=== PATIENT | male | born 1955 | race Hispanic/Latino ===

== ENCOUNTER 2025-02-09 10:24 | Emergency (ER) | payer BC, MEDICARE ==
[~2025-02-09] VITALS: Ht 172.7 cm; Wt 93.0 kg
[2025-02-09 10:26] VITALS: BP 120/90; PULSE 92; RESP 16; TEMP 99.1
[2025-02-09 10:44] LABS: GLUCOSE, URINE (UA) NEGATIVE (NEGATIVE); LEUKOCYTE ESTERASE ,URINE 500 Leu/uL (NEGATIVE); NITRATE,URINE NEGATIVE (NEGATIVE); OCCULT BLOOD,URINE LARGE (NEGATIVE)
[2025-02-09 10:45] LABS: ADD UA MICROSCOPIC YES; APPEARANCE,URINE CLOUDY (CLEAR)
--- NOTE | 2025-02-09 11:10 | ERN ---
ED Note History of Present Illness Stated Complaint: HEMATURIA Chief Complaint: Blood in Urine: Time Seen by MD: 10:26 Time Seen by Midlevel: 10:27 Dictation: 69-year-old male who presents to the emergency department due to report of having burning and painful urination along with a trace of blood that was noted this morning. Currently, he denies having any fever, chills, nausea, vomiting, flank pain, abdominal pain or scrotal/testicular pain. Patient states that he is not having any penile discharge. He states that he has had some urinary tract infections in the past of the and believes that this is related to that. However, he states that he does have a history of kidney stones but states that this does not feel that the most that he has had in the past. Allergies: Coded Allergies: No Known Drug Allergies (Unverified Allergy, Unknown, 02/09/25) Uncoded Allergies: POLLENS, GRASS, TREE LEAVES (Allergy, Unknown, COUGH, 04/28/15) Emergency Care SOFTWARE APPLICATIONS ARCHITECT: None Home Meds No Active Prescriptions or Reported Meds Past Medical History Past Medical History: Other Additional Past Medical Hx: PROSTATE PROBLEMS Surgical History: Other Surgical History Other: RT SHOULDER SX PSYCH History: no pertinent psych hx RN Note Reviewed/Agreed w/PFSH: Yes Review of System Dictation : Dysuria, hematuria Initial Vital Sign VS Vital Signs Date Time Temp Pulse Resp B/P (MAP) Pulse Ox O2 Delivery O2 Flow Rate FiO2 02/09/25 10:26 99.1 92 16 120/90 97 Room Air 0 Physical Exam Dictation General: awake, alert, NAD Head/Face: Normocephalic, atraumatic Eyes: PERRL, EOMI ENT: Oral mucosa moist Neck: Trachea midline, supple Cardiovascular: RRR, no edema Respiratory: Symmetrical, non-labored Abdomen: Soft, non-tender, non-distended, no guarding. Skin: Warm, dry, good turgor, no rash MS/Extremity: Pulses equal, no cyanosis, neurovascular intact, FROM Neuro: COAx4, GCS 15, steady gait, Psych: Normal behavior, mood, and affect normal Results (Laboratory/Radiology) Laboratory/Radiology Laboratory Tests Test 02/09/25 10:35 Urine Color RED (YELLOW) Urine Appearance CLOUDY (CLEAR) H Urine pH 6.0 (5.0-8.0) Urine Specific [place] 1.016 (1.001-1.031) Urine Protein 70 mg/dL (NEGATIVE) H Urine Glucose (UA) NEGATIVE mg/dL (NEGATIVE) Urine Ketones NEGATIVE mg/dL (NEGATIVE) Urine Occult Blood LARGE (NEGATIVE) H Urine Nitrate NEGATIVE (NEGATIVE) Urine Bilirubin NEGATIVE mg/dL (NEGATIVE) Urine Urobilinogen 0.2 mg/dL (0.2-1.0) Urine Leukocyte Esterase 500 Natalia/uL (NEGATIVE) H Urine RBC TNTC /HPF (0-1) H Urine WBC TNTC /HPF (0-1) H Urine Bacteria FEW /HPF (None Seen) Labs Reviewed?: Yes ED Course ED Course Orders Procedure Category Date Status Time Urinalysis Profile LAB 02/09/25 Complete 10:27 Culture Urine EMEKA 02/09/25 In Process 10:45 Ceftriaxone 1g Vial PHA 02/09/25 Complete (Rocephine 1g Inj) 11:00 Phenazopyridine Hcl PHA 02/09/25 Complete 200 Mg Tab (Pyridium 11:00 Current Medications Medications (Trade) Dose Ordered Sig/Mainor Route PRN Reason Start Time Stop Time Status Last Admin Dose Admin Ceftriaxone Sodium (ROCEphine 1G INJ) 1 gm ONCE ONCE IM 02/09/25 11:00 02/09/25 11:01 DC Phenazopyridine HCl (PYRIdium HCL 200 MG TAB) 100 mg ONCE ONCE PO 02/09/25 11:00 02/09/25 11:01 DC Vital Signs Date Time Temp Pulse Resp B/P (MAP) Pulse Ox O2 Delivery O2 Flow Rate FiO2 02/09/25 10:26 99.1 92 16 120/90 97 Room Air 0 Medical Decision Making MDM MDM: Differential diagnosis: Acute UTI, hemorrhagic cystitis, acute pyelonephritis. Rationale: Tests considered and ordered secondary to shared decision making include: Previous outside records reviewed: Old ER visits. Risk of complication and/or morbidity or mortality of patient management: None Medications-Per medication reconciliation Need for hospitalization: Patient does not meet criteria for hospitalization. Need for emergency major/minor surgery: No There are no social concerns with this patient. Prescription drug management Prescriptions will include symptomatic care Patient's prior external medical records from other ER visits were reviewed by me as indicated. Prior testing and results from previous visits were reviewed. Prior tests were taken into account with medical decision making and resource utilization, independent historian/historians were used to obtain complete medical history. I independently interpreted the test that were performed, results were reviewed by me and considered findings on radiology if ordered. Medical management and examination interpretation discussions were had by me with other qualified healthcare professionals as indicated for the patient's care. DX & DISP Disposition: Discharge Departure Impression: Primary Impression: Acute UTI Condition: Stable Scripts Cephalexin Monohydrate (Keflex) 500 Mg Cap 500 MG PO TID for 7 Days, #21 CAP Prov: BRENDA SYED 02/09/25 Referrals: RADHA FREED DO (PCP) BRENDA SYED Feb 09, 2025 11:10
[2025-02-09] MEDS: PHENAZOpyridine HCL 200 MG TAB 200 MG TABLET PO ONE (11:33)
[2025-02-09] MEDS ORDERED: CEPH500B PO (11:39)
== END 2025-02-09 11:48 | disposition home or self-care (01) ==
LOC: EDH 10:24
DX: N39.0 Urinary tract infection, site not specified (principal)
CPT/HCPCS: 99283; 87086 ×2; 87186; 81001; 96372; J0696